=== PATIENT | female | born 1950 ===

== ENCOUNTER 2024-08-24 13:11 | Outpatient (REF) | payer MEDICARE, MEDICAID, SELFPAY ==
[2024-08-24 13:53] LABS: Appearance Urine Clear; Color Urine Yellow; Glucose Urine UA Negative (Negative); Leukocyte Esterase Urine Large (3+) (Negative); Nitrite Urine Negative (Negative); UMIC TRIGGER UACC YES; Urine Blood Moderate (2+) (Negative); Urine Ketones Negative (Negative); Urine Protein 30 (1+) mg/dL (Neg-Trace)
[2024-08-24 14:09] LABS: Bacteria Urine 2+ (None Seen); Hyaline Casts Urine 0-2 /LPF (0-2); Squamous Epithelial Cell Urine 0-2 /HPF (0-2); UACC Culture Trigger YES
--- OUTSIDE RECORDS SUMMARY | 2024-08-24 16:07 | XMS_ITS | Data Portability ---
Author Organization [facility], Home Service Address [address] [address] Assessment Encounter Date Assessment Date Assessment LastModified by Organization Details LastModified Time 05/27/2023 05/27/2023 Patient agreed and verbally consents to this audio and video Telehealth appt via a secure platform [email or web address] Not available 05/27/2023 13:48:48 08/24/2024 08/24/2024 Patient presente d to office today for their Medicare Annual Wellness Visit. Education was provided on healthy nutrition, including a diet rich in fruits and vegetables, minimizing simple carbohydrates, salt, and saturated fats. Encouraged regular cardiovascular exercise such as walking at least 30 minutes daily, 5 times per week. Emphasized preventive health measures and educated pt on fall prevention and community-based lifestyle interventions to help reduce health risks and promote healthy living. [email or web address] Not available 08/17/2024 06:56:18 Plan of Treatment Reminders Order Date Submit Date Provider Last Modified By Organization Details Last Modified Time Details Appointments MEDICARE ANNUAL WELLNESS 2024 10:00A M DR GOODRICH Not available Not available Not available MEDICARE ANNUAL WELLNESS 2025 10:30A M DR GOODRICH Not available Not available Not available Lab urinalysi s, dipstick 2024 025 Replaced by [facility], [address] [facility], [address], [place], [address], 08/24/2024 10:42:20 urinalysi s, reflex culture 2024 025 [facility] ([facility]), [address] [place] [address], [id number], 08/24/2024 10:34:43 urinalysi s, reflex culture 2024 025 [facility] ([facility]), [address] [place] [address], [id number], 08/24/2024 10:34:43 CBC w/ auto diff 2024 025 [facility] ([facility]), [address] [place] [address], [id number], 08/24/2024 10:34:43 CMP, serum or plasma 2024 025 [facility] ([facility]), [address] [place] [address], [id number], 08/24/2024 10:34:43 lipid panel, blood 2024 025 [facility]), [address] [place] [address], [id number], 08/24/2024 10:34:43 hemoglobi n, gastroint estinal, stool 2024 025 [facility] ([facility]), [address] [place] [address], [id number], 08/24/2024 10:34:43 CBC w/ auto diff 2023 024 [facility] [address] [place] [address], [id number], 09/29/2023 11:48:05 CMP, serum or plasma 2023 024 [email or web address] [facility] ([facility]), [address] [place] [address], [id number], 10/07/2023 09:09:17 CMP, serum or plasma 2023 024 [email or web address] 10 [facility] ([facility]), [address] [place], [address], 08/19/2023 08:32:24 CBC w/ auto diff 2023 024 [facility] ([facility]), [address] [place] [address], [id number], 08/19/2023 10:39:33 lipid panel, blood 2023 024 [email or web address] 10 [facility] ([facility]), [address] [place] [address], [id number], 08/19/2023 08:32:24 vitamin D, 25-hydrox y, total, serum 2023 024 [email or web address] [facility] ([facility]), [address] [place] [address], [id number], 08/12/2023 12:07:16 TSH + free T4, serum 2023 024 [facility] ([facility]), [address] [place] [address], [id number], 08/19/2023 10:39:34 HbA1c (hemoglob in A1c), blood 2021 PETE Not available 03/11/2022 03:03:19 CMP, serum or plasma 2021 PETE Not available 03/09/2022 13:05:51 CBC w/ auto diff 2021 PETE Not available 03/09/2022 13:05:51 lipid panel, blood 2021 PETE Not available 03/11/2022 03:04:45 vitamin D, 25-hydrox y, total, serum 2021 [email or web address] Not available 03/12/2022 08:51:51 vitamin B12, serum 2021 ATHENAFAX Not available 03/05/2022 11:12:32 TSH, serum or plasma 2021 ATHENAFAX Not available 03/05/2022 11:12:32 hepatitis C Ab, serum 2021 PETE Not available 03/09/2022 12:00:33 Referral None recorded. Procedures None recorded. Surgeries None recorded. Imaging bone density [address] [facility] [address] [facility], [address] [place] [address], [id number], 08/24/2024 14:37:11 MRI, lumbar spine, w/o contrast [address] [facility] [address] [facility], [address] [place] [address], [id number], 08/24/2024 14:37:10 CT, hip, w/o contrast [address] [facility] [address] [facility], [address] [place] [address], [id number], 08/24/2024 14:37:10 XR, hip + pelvis, unilatera l, 2 or 3 view 2023 024 [facility], [address] [place] [address], [address], 08/21/2023 09:49:00 MAMMO, screening , digital, bilateral 2021 022 [facility], [address] [place] [address], [id number], 03/19/2022 08:32:09 bone density 2021 [facility], [address] [place] [address], [address], 03/19/2022 08:32:09 Medication Orders Zithromax Z-Aaron 250 mg tablet 2023 024 [facility], [address] [place], [address], 09/29/2023 11:43:53 erythromy presley 5 mg/gram (0.5 %) eye ointment 2023 024 [email or web address] [facility], [address] [place], [address], 09/29/2023 11:32:34 Medrol (Aaron) 4 mg tablets in a dose pack [address] [facility], [address] [place], [address], 08/12/2023 11:26:39 doxycycli ne hyclate 100 mg tablet [address] [facility] [address], [address] [place], [address], 08/12/2023 11:26:18 meloxicam 15 mg tablet [address] [facility] [address], [address] [place], [address], 08/12/2023 11:26:25 Patient TargetsNo targets recorded. Patient Instructions Encounter Date Encounter Id Patient Instructions Last Modified By Organization Details Last Modified Time 03/05/2022 [id number] mammogram: about this test Not available 03/05/2022 11:13:56 08/24/2024 [id number] advance care planning: care instructions Not available 08/24/2024 10:33:10 Discussed and explained advance directives such as standard forms to the {{patient caregiv er patient and caregiver}}. Face to face discussion lasted for a duration of ___ minutes. [email or web address] Not available 08/17/2024 06:56:18 Reason for Referral None Reported. Results Created Date Observation Date Name Description Value Unit Range Abnormal Flag Note LastModifiedBy Organization Detail LastModifiedTime 08/25/1908/24/2024 urina lysis , dipst ick Leukocytes Small Not Available [facility] [address] [facility] [address], [place], [address], 08/24/2024 10:14:32 08/25/19 25 08/24/2024 urina lysis , dipst ick Nitrite negati ve Not Available [facility] [address], [place], [address], 08/24/2024 10:14:32 08/25/19 25 08/24/2024 urina lysis , dipst ick Urobilinogen .2 Not Available [address], [place], [address], 08/24/2024 10:14:32 08/25/19 25 08/24/2024 urina lysis , dipst ick pH 6.5 Not Available [address], [place], [address], 08/24/2024 10:14:32 08/25/19 25 08/24/2024 urina lysis , dipst ick Protein 30 Not Available [address], [place], [address], 08/24/2024 10:14:32 08/25/19 25 08/24/2024 urina lysis , dipst ick Blood Large Not Available [facility] [address], [place], [address], 08/24/2024 10:14:32 08/25/19 25 08/24/2024 urina lysis , dipst ick Specific [place] 1.010 Not Available [facility] [address], [place], [address], 08/24/2024 10:14:32 08/25/19 25 08/24/2024 urina lysis , dipst ick Ketone Negati ve Not Available [facility] [address] [facility] [address], [place], [address], 08/24/2024 10:14:32 08/25/19 25 08/24/2024 urina lysis , dipst ick Bilirubin Negati ve Not Available [facility] [address] [facility] [address], [place], [address], 08/24/2024 10:14:32 08/25/19 25 08/24/2024 urina lysis , dipst ick Glucose Negati ve Not Available [facility] [address] [facility] [address], [place], [address], 08/24/2024 10:14:32 08/25/19 25 08/24/2024 urina lysis , dipst ick Appearance Cloudy Not Available [facility] [address] [facility] [address], [place], [address], 08/24/2024 10:14:32 08/25/19 25 08/24/2024 urina lysis , dipst ick Color Pale Yellow Not Available [facility] [address] [facility] [address], [place], [address], 08/24/2024 10:14:32 03/20/20 22 03/20/2022 bone densi ty No observ ation record ed. [email or web address] [facility] [address] [place] [address], [address], 03/26/2022 14:27:05 03/31/20 22 03/29/2022 MAMMO , scree nila, digit al, bilat eral No observ ation record ed. [facility] [address] [place] [address], [address], 03/31/2022 20:50:54 08/21/19 24 08/19/2023 XR, hip + pelvi s, unila teral , 2 or 3 view No observ ation record ed. [email or web address] [facility] [address] [place] [address], [address], 08/22/2023 08:47:42 12/16/19 24 12/16/2023 CT, urogr am No observ ation record ed. [email or web address] [address] [facility] [address], [place], [address], 12/16/2023 12:25:53 Result Notes None recorded. Problems Name Problem SNOMED Code Status Onset Date Resolution Date Notes Provider Name and Address Organization Details Recorded Time Blood in urine 42029247 [facility] 08:40:27 Fibroma 021864270 Active 2017 pulmonary [place] [facility] 8 08:40:59 Bronchit is 52687372 Active 2017 [facility] 8 08:41:10 Polyp of colon 13759061 Active 2017 [facility] 8 08:41:33 Osteopen ia 582651883 Active 2021 Mohit Goodrich DO [address] [place] [address], [address], [facility] 2 11:09:50 Achilles tendinit is 80285648 Active 2021 Mohit Goodrich DO [address] [place] [address], [address], [facility] 2 11:15:33 Neutrope cyn 611745695 Active 2021 Mohit Goodrich DO [address] [place] [address], [address], [facility] 2 13:33:15 Infectio n of tick bite 969960151 Active 2022 SMITH WORTHY [address] [place], [address], [facility] 3 09:31:30 Acute sinusiti s 20231222 Active 2023 SMITH WORTHY [address] [place], [address], [facility] 4 13:48:41 Acute laryngit is 1347962 Active 2023 SMITH WORTHY [address] [place], [address], [facility] 4 13:52:25 Pain of left hip joint 68321153763 9100 Active 2023 Mohit Goodrich DO [address] [place] [address], [address], [facility] 4 12:00:52 Hordeolu m externum of lower eyelid of right eye 56568852375 9104 Active 2023 Mohit Goodrich DO [address] [place], [address], [facility] 4 12:01:53 Acute urinary tract infectio n 360590212 Active 2023 SMITH WORTHY [address] [place], [address], [facility] 4 09:50:46 Impacted cerumen in left ear 13402952810 36986 Active 2023 SMITH WORTHY [address] [place], [address], [facility] 4 11:43:04 Acute otitis media 6913366 Active 2023 SMITH WORTHY [address] [place], [address], [facility] 4 11:43:21 Dysuria 81828708 Active 2023 SMITH WORTHY [address] [place], [address], [facility] 4 09:33:54 Weakness of left lower limb Active 2024 Mohit Goodrich, DO [address] [place], [address], [facility] 5 10:28:06 Myelopat hy due to spinal stenosis of lumbar region 92067829896 9103 Active 2024 Mohit Goodrich, DO [address] [place], [address], [facility] 5 10:29:44 Instabil ity of left hip joint 368039719 Active 2024 Mohit Goodrich, DO [address] [place], [address], [facility] 5 10:34:04 Problem Notes None recorded. Procedures Surgical History Date Name Laterality Status Provider Name and Address Organization Details Recorded Time 4 Cerumen Removal completed SMITH WORTHY [address] [place], [address], [facility] 09/29/2023 11:48:07 Imaging Results Imaging Date Name Status LastModified by Organiz ation Details LastModified Time 03/20/2022 bone density completed [facility] [address] [place] [address], [address], 03/26/2022 14:27:05 03/29/2022 MAMMO, screening, digital, bilateral completed [facility] [address] [place] [address], [address], 03/31/2022 20:50:54 08/19/2023 XR, hip + pelvis, unilateral, 2 or 3 view completed [email or web address] [facility] [address] [place] [address], [address], 08/22/2023 08:47:42 12/16/2023 CT, urogram completed [facility] [address] [facility] [address], [place], [address], 12/16/2023 12:25:53 Procedure Notes None recorded. Medical Equipment None Reported. Allergies No known drug allergies Medications Name Sig Start Date Stop Date Status Note LastModified by Organization Details LastModified Time azithromyci n 250 mg tablet TAKE 2 TABLETS BY MOUTH ON DAY 1, AND THEN TAKE 1 TABLET BY MOUTH ONCE A DAY ON DAY 2 THROUGH DAY 5 active Not Available Not Available No t Available meloxicam 15 mg tablet Take 1 tablet every day by oral route for 30 days. 08/11 completed Not Available Not Available Not Available phenazopyri dine 200 mg tablet TAKE ONE TABLET BY MOUTH THREE TIMES A DAY NEEDED FOR 7 DAYS 03/05 completed Not Available Not Available Not Available ciprofloxac in 250 mg tablet TAKE 1 TABLET BY MOUTH EVERY 12 HOURS FOR 3 DAYS 09/28 completed Not Available Not Available Not Available sulfamethox azole 800 mg-trimetho prim 160 mg tablet Take 1 tablet every 12 hours by oral route for 10 days. active Not Available Not Available No t Available erythromyci n 5 mg/gram (0.5 %) eye ointment APPLY 1CM RIBBON INTO LOWER CONJUNCTI MELANI SAC(S) IN THE AFFECTED EYE(S) THREE TIMES DAILY FOR 10 DAYS 09/28 completed Not Available Not Available Not Available diclofenac sodium 75 mg tablet,navarro yed release TAKE ONE TABLET BY MOUTH TWICE A DAY 03/05 completed Not Available Not Available Not Available methylpredn isolone 4 mg tablets in a dose pack USE DIRECTED ON PACKAGE 08/11 completed Not Available Not Available Not Available doxycycline hyclate 100 mg tablet TAKE 1 TABLET BY MOUTH TWICE DAILY DIRECTED FOR SINUS INFECTION FOR 7 DAYS 08/11 completed Not Available Not Available Not Available diazepam 5 mg tablet TAKE ONE TO TWO TABLETS BY MOUTH 2 HOURS PRIOR TO MRI 03/05 completed Not Available Not Available Not Available neomycin 3.5 mg/g-polymy victoriano B 10,000 unit/g-dexa meth 0.1 % eye oint APPLY OINTMENT IN THE RIGHT EYE THREE TIMES A DAY FOR 1 WEEK, THEN ONCE DAILY FOR 1 WEEK active Not Available Not Available No t Available cyclobenzap rine 5 mg tablet TAKE ONE TABLET BY MOUTH THREE TIMES A DAY FOR 7 DAYS 10/25 /2022 completed Not Available Not Available Not Available calcium 09/28 completed Not Available Not Available Not Available Vitamin D active Not Available Not Meme ilable Not Available Vitals Date Recorded Body height Body mass index (BMI) Body weight Heart rate Oxygen saturation Oxygen saturation in Arterial blood by Pulse oximetry Systolic blood pressure Diastolic blood pressure Provider Name and Address Organization Details Last Updated DateTime 2 159.39 cm 31.8 kg/m2 52580.1 6 g 65 /min 100 % 100 % 142 mm[Hg] 68 mm[Hg] Mohit Goodrich, DO [address] [place], [address] 2 10:23:08 Date Recorded Body height Body mass index (BMI) Body weight Heart rate Oxygen saturation Oxygen saturation in Arterial blood by Pulse oximetry Systolic blood pressure Diastolic blood pressure Provider Name and Address Organization Details Last Updated DateTime 4 157.48 cm 32.2 kg/m2 28781.2 6 g 73 /min 100 % 100 % 130 mm[Hg] 80 mm[Hg] Marjan Smith [facility] 4 11:28:21 Date Recorded Body height Body mass index (BMI) Body weight Heart rate Oxygen saturation Oxygen saturation in Arterial blood by Pulse oximetry Systolic blood pressure Diastolic blood pressure Provider Name and Address Organization Details Last Updated DateTime 4 157.48 cm 31.6 kg/m2 98419.7 6 g 78 /min 100 % 100 % 118 mm[Hg] 70 mm[Hg] Christina Jaquez [facility] 4 11:33:59 Date Recorded Body height Body mass index (BMI) Body weight Heart rate Oxygen saturation Oxygen saturation in Arterial blood by Pulse oximetry Systolic blood pressure Diastolic blood pressure Provider Name and Address Organization Details Last Updated DateTime 5 157.48 cm 31.5 kg/m2 12742.8 9 g 82 /min 98 % 98 % 120 mm[Hg] 68 mm[Hg] Marjan Smith [facility] 5 09:58:11 Social History Question Answer Notes LastModified by Organizat ion Details LastModified Time Tobacco Smoking Status Former Smoker Not Available [facility] 03/14/2020 03:36:23 What Was The Date Of Your Most Recent Tobacco Screening? 08/24/2024 [email or web address] Information not available 08/24/2024 Do You Or Have You Ever Used Any Other Forms Of Tobacco Or Nicotine? No Information not available 03/05/2022 Sex: Unknown Functional Status None recorded. Mental Status None recorded. Family History Nothing Reported. Medical History No medical history recorded. Gynecological HistoryNo gynecological history recorded. Obstetrics History GPAL:G 0 P 0 0 0 0 Immunizations Vaccine Type Date Status Note Provider Nam e and Address Organization Details Recorded Time COVID-19, mRNA, LNP-S, PF, 30 mcg/0.3 mL dose 1 [facility] 01/16/2021 14:45:03 COVID-19, mRNA, LNP-S, PF, 30 mcg/0.3 mL dose 1 completed aNva avery [facility] 01/16/2021 14:45:12 COVID-19, mRNA, LNP-S, PF, 30 mcg/0.3 mL dose 2 completed Mohit Goodrich DO [address] [place] [address], [address], [facility] 08/17/2021 07:04:00 Influenza, split virus, quadrivalent, preservative 2 completed [facility] 02/25/2022 10:27:49 COVID-19, mRNA, LNP-S, PF, 30 mcg/0.3 mL dose 2 completed Mohit Goodrich DO [address] [place] [address], [address], [facility] 03/05/2022 10:22:05 zoster, unspecified formulation 3 completed Mohit Goodrich DO [address] [place] [address], [address], [facility] 01/03/2023 07:21:36 zoster recombinant 3 completed [facility] 03/24/2023 09:05:25 zoster recombinant 3 completed America avery [facility] 03/24/2023 11:47:31 influenza, unspecified formulation 4 completed Earnest avery [facility] 02/27/2024 15:51:09 COVID-19, mRNA, LNP-S, PF, 30 mcg/0.3 mL dose 4 completed Earnest avery [facility] 02/27/2024 15:53:03 pneumococcal, unspecified formulation 4 completed Mohit Goodrich [address], [address], [facility] 03/07/2024 08:46:42 Influenza, split virus, quadrivalent, preservative 9 completed Vonnie avery [facility] 03/23/2019 11:32:31 Past Encounters Encounter ID Performer Location Encounter Start Date Encounter Closed Date Diagnosis/Indication Diagnosis SNOMED-CT Code Diagnosis ICD10 Code Diagnosis Note [id number] Mohit Goodrich DO [facility] [address] [place] [address],[place] [address] 01/27/2018 13:46:04 01/27/2018 14:57:04 Adult health examination 842195179 Z00.00 will get fbw Active or passive immunization 763112570 Z23 Screening for cardiovascular system disease 688195646 Z13.6 Achilles tendinitis 1165 4001 M76.62 [id number] Mohit Goodrich DO [facility] [address] [facility], [place] [address] 10/19/2019 10:22:18 10/19/2019 11:40:49 Adult health examination 176202475 Z00.00 will get fbw Left Achil les tendinitis 8673262404 73069 M76.62 [id number] SMITH WORTHY [facility] [address] [facility] [address] 01/16/2021 14:37:26 01/16/2021 15:21:23 Lumbago with sciatica 975333760 M54.41 will start with XR, fu with MRI afterstart on diclofenac and cyclobenza aron [id number] Mohit Goodrich [facility] [address] [facility], [place] [address] 03/05/2022 10:14:40 03/05/2022 11:24:16 Active or passive immunization 838322313 Z23 patient due for flu shot, tdap, pneu Adult heal th examination 143671377 Z00.01 she is in need of fasting lab will need to follow dr ernst fitzgerald disc herniation if not getting attended to we will send her to dr meyers Impaired f asting glycemia 981121391 R73.01 Advance care planning 71 9601521 Z71.89 uipdated Osteopenia 264098614 M85 .80 Hepatitis C screening 41 6831117 Z11.59 Screening mammography 24 285003 Z12.31 Achilles tendinitis 1165 4001 M76.62 [id number] SMITH WORTHY [facility] [address] [facility],[place] [address] 05/27/2023 12:17:42 05/28/2023 08:43:27 Acute sinusitis 53916506 J01.10 will start on medrol and doxycyclin e Acute laryngitis 8443320 J04.0 warm salt water rinses if toleratedv ocal rest [id number] Mohit Goodrich DO [facility] [address] [facility],[place] [address] 08/12/2023 11:23:33 08/12/2023 12:25:04 Adult health examination 606364003 Z00.01 she is in need of fasting lab will need to follow dr dukes re disc herniation if not getting attended to we will send her to dr meyers Pain of le ft hip joint 8429763963 65385 M25.552 Hordeolum externum of lower eyelid of right eye 9330770455 00538 H00.012 [id number] SMITH WORTHY [facility] [address] [facility], [place] [address] 09/29/2023 11:23:45 09/29/2023 14:18:00 Depression screening 459228462 Z13.31 negative Impacted c erumen in left ear 0738040560 150095 H61.22 resolved, tolerate lavage well Acute otitis media 23382 03 H65.02 will set up with z-aaron Neutropenia 214546299 D7 0.8 will set up with CBC with diff to recheck [id number] Mohit Goodrich DO [facility] [address],[place] [address] 08/24/2024 09:42:55 08/24/2024 14:37:10 Adult health examination 292928236 Z00.00 she is in need of fasting lab will need to follow dr dukes re disc herniation if not getting attended to we will send her to dr pichardo and los Screening for cardiovascular system disease 203129541 Z13.6 Screening for malignant neoplasm of colon 922710734 Z12.11 Screening for osteoporosis 844363021 Z13.820 Screening mammography 24 242618 Z12.31 scheduled tomorrow Neutropenia 446196720 D7 0.8 resolved no issues Hordeolum externum of lower eyelid of right eye 9874209994 01410 H00.012 resolved Acute urin ronaldo tract infection 618598599 N39.0 Myelopathy due to spinal stenosis of lumbar region 6041112028 88062 M48.061 Instabilit y of left hip joint 887268851 M25.352 Health Concerns Section Related Observation LastModified by Organization Detai ls LastModified Time None Recorded Concern Status LastModified by Organization Details LastModified Time None Recorded Advance Directives Directive None Recorded Payers Encounter Date Sequence Insurance Name Policy Number Policy Garland Covered Member ID Garland Member ID Guarantor Name 03/05/2022 1 [place] PPO) [id number] Destiney Rodney [id number] Destiney Rodney 03/05/2022 2 [place] [employer] Destiney Rodney [id number] Destiney Rodney 05/27/2023 1 [place]MED[place] PPO) [id number] Destiney Rodney [id number] Destiney Rodney 05/27/2023 2 [place] [employer] Destiney Rodney [id number] Destiney Rodney 08/12/2023 1 [place]MED[place] PPO) [id number] Destiney Rodney [id number] Destiney Rodney 08/12/2023 2 [place] [employer] Destiney Rodney [id number] Destiney Rodney 09/29/2023 2 [place] Destiney Rodney [id number] Destiney Rodney 09/29/2023 1 [place] PPO) [id number] Destiney Rodney [id number] Destiney Rodney 08/24/2024 2 [place] [facility] Destiney Rodney [id number] Destiney Rodney 08/24/2024 1 [place]MED[place] PPO) [id number] Destiney Rodney [id number] Destiney Rodney Notes Date Note Type Note Provider Name a ct Address Organization Details Recorded Time 2 text/html Annual WellnessReported bypatient.Diet and Nutrition:healthy diet Fracture Risk:no history of fractures; no recent explained fracture; no sudden unexplained fractures; no previous musculoskeletal injuries Physical Activity:exercises on a regular basis; recent increase in physical activity; good physical condition Additional Lifestyle Factors:no tobacco use; no alcohol intake; stopped drinking alcohol Depression Risk:never feels sad, empty, or tearful; no loss of interest in activities; no significant changes in weight; no sleep disturbances or insomnia; no agitation; no loss of energy; no feelings of worthlessness or guilt; no thoughts of suicide; no history of depression; no history of mood disorders Hearing:no loss of hearing Vision:no vision problems still having trouble with her backhad a revcent MRI done through dr vallejo pendingnow having ongoing discomfort in left ankle Mohit Goodrich, DO [address], [place], [address], [facility] 03/05/2022 11:16:28 4 text/html c/o sore throat, sinus pain The patient is participating in this appointment via telemedicine communication with a phone call/video calling service (Agorique)The patient consents to use of these platforms in place of an in-person appointment due to either sick symptoms the patient is presenting with or current office closure due to COVID exposure in order to keep our office staff and patients safe The patient presents to the office today with concerns of sick symptoms including post-nasal drip, sore throat, sinus pain and pressure, denies fever or chillsno sob also developing laryngitis today, her voice was in and out on the phone The symptoms started originally about 10 days ago, no known sick contactsThe patient denies any known exposureThe patient symptoms mainly involves the sinus pressure and sore throat Pertinent comorbidities include age otherwise no other symptoms The patient symptoms are alleviated by rest, napping but picks up again when she is doing chores around the housesudafed helps a little bitThe patient symptoms are exacerbated by bending forward, excess activity The patient has tested for COVID-19 and the results was negative SMITH WORTHY [address] [place], [address], [facility] 05/27/2023 13:52:45 4 text/html Annual WellnessReported bypatient.Diet and Nutrition:healthy diet Fracture Risk:no history of fractures; no recent explained fracture; no sudden unexplained fractures; no previous musculoskeletal injuries Physical Activity:exercises on a regular basis; recent increase in physical activity; good physical condition Additional Lifestyle Factors:no tobacco use; no alcohol intake; stopped drinking alcohol Depression Risk:never feels sad, empty, or tearful; no loss of interest in activities; no significant changes in weight; no sleep disturbances or insomnia; no agitation; no loss of energy; no feelings of worthlessness or guilt; no thoughts of suicide; no history of depression; no history of mood disorders Hearing:no loss of hearing Vision:no vision problems here for annual doing ok overallhad covid and rsv infectionsalso had a fall and injured her right lower pereira still having trouble with her back Mohit Goodrich DO [address] [place], [address], [facility] 08/12/2023 12:07:33 4 text/html c/o L ear pain patient presents to the office today with ear pain, left sidestarted a few days ago, feels like a pressure and an ache, constant, some very mild hearing losscausing her some vertigo with positional changes, like bending to standing, moving her head to quicklyevaluation reveals L ear canal blocked with earwaxagreed to lavage today in officeperformed by RTimpaction completely removedpt noted immediate relief in her symptoms she does have an ear infection a recheck with wax removedwill have her start on z aaron otherwise no other concerns SMITH WORTHY [address] [place], [address], [facility] 09/29/2023 11:50:46 5 text/html Medicare Annual Wellness VisitReported bypatient.Diet and Nutrition:healthy diet Fracture Risk:no history of fractures; no recent explained fracture; no sudden unexplained fractures; no previous musculoskeletal injuries Physical Activity:exercises on a regular basis; recent increase in physical activity; good physical condition Depression Risk:never feels sad, empty, or tearful; no loss of interest in activities; no significant changes in weight; no sleep disturbances or insomnia; no agitation; no loss of energy; no feelings of worthlessness or guilt; no thoughts of suicide; no history of depression; no history of mood disorders Orientation:no disorientation to time; no disorientation to date; no disorientation to place Concentration and Memory:no decreased concentrating ability; no memory lapses or loss; does not forget words Speech/Motor difficulties:no speech difficulties; no difficulty expressing formulated concepts; no difficulty with fine manipulative tasks; no difficulty writing/copying; no slowed reaction time; does not knock things over when trying to pick them up Hearing:no loss of hearing; having difficulty walking Vision:no vision problems Activities of Daily Living:able to bathe with limited or no assistance; able to contol urination and bowels; able to dress with limited or no assistance; able to feed self with limited or no assistance; able to get out of chair or bed with limited or no assistance; able to groom with limited or no assistance; able to toilet with limited or no assistance Instrumental Activities of Daily Living:able to do house work with limited or no assistance; able to grocery shop with limited or no assistance; able to manage medications with limited or no assistance; able to manage money with limited or no assistance; able to prepare meals with limited or no assistance; able to use the phone with limited or no assistance Falls Risk Assessment:no frequent falls while walking; no fall in the past year; no fall since last visit; no dizziness/vertigo Home Safety:no unsafe arlene hazzards; no unsafe stairs; no unsafe gas appliances; working smoke/CO detectors; wears protective head gear for biking/high velocity; use of seatbelts; practicing 'safer sex'; no vision or hearing loss while driving; no fire arms; has hand bars in the bathroom/shower; good lighting in the home here fo mwvrelates having pain and discomfort to left hip and lower back arearelates cannot walk any length now legs feel weak and almost give out Mohit Goodrich, DO [address], [place], [address], [facility] 08/24/2024 10:43:52 OBGyn Episode No OBEpisode recorded.
--- OUTSIDE RECORDS SUMMARY | 2024-08-24 16:07 | XMS_ITS | Continuity of Care Document ---
Author Organization [facility], [facility] Address [address] [place] [address] Assessment Encounter Date Assessment Date Assessment LastModified by Organization Details LastModified Time 08/24/2024 08/24/2024 Patient presente d to office [...] available Lab urinalysi s, dipstick 2024 025 [facility], [address] [facility], [address], [place], [address], 08/24/2024 10:42:20 urinalysi s, reflex culture 2024 025 [facility] (Outpatient), [address] [place] [address], [id number], 08/24/2024 10:34:43 urinalysi s, reflex culture 2024 025 [facility] (Outpatient), [address] [place] [address], [id number], 08/24/2024 10:34:43 CBC w/ auto diff 2024 [facility] (Outpatient), [address] [place], [address], 08/24/2024 10:34:43 CMP, serum or plasma 2024 [facility] (Outpatient), [address] [place], [address], 08/24/2024 10:34:43 lipid panel, blood 2024 [facility] (Outpatient), [address] [place] [address], [id number], 08/24/2024 10:34:43 hemoglobi n, gastroint estinal, stool 2024 [facility] (Outpatient), [address] [place], [address], 08/24/2024 10:34:43 Referral None recorded. Procedures None recorded. Surgeries None recorded. Imaging bone density [address] [facility], [address] [place] [address], [id number], 08/24/2024 14:37:11 MRI, lumbar spine, w/o contrast [address] [facility], [address] [place] [address], [id number], 08/24/2024 14:37:10 CT, hip, w/o contrast [address] [facility], [address] [place] [address], [id number], 08/24/2024 14:37:10 Medication Orders None recorded. Patient TargetsNo targets recorded. Patient Instructions Encounter Date Encounter Id Patient Instructions Last Modified By Organization Details Last Modified Time 08/24/2024 [id number] advance care planning: care instructions Not available [...] , dipst ick Leukocytes Small Not Available [facility] [address] [place] [address] D, [place], [address], 08/24/2024 10:14:32 08/25/19 25 08/24/2024 urina lysis , dipst ick Nitrite negati ve Not Available [facility] [address] [place] [address] D, [place], [address], 08/24/2024 10:14:32 08/25/19 25 08/24/2024 urina lysis , dipst ick Urobilinogen .2 Not Available [facility] [address], [place], [address], 08/24/2024 10:14:32 08/25/19 25 08/24/2024 urina lysis , dipst ick pH 6.5 Not Available [facility] [address], [place], [address], 08/24/2024 10:14:32 08/25/19 25 08/24/2024 urina lysis , dipst ick Protein 30 Not Available [facility] [address], [place], [address], 08/24/2024 10:14:32 08/25/19 25 08/24/2024 urina lysis , dipst ick Blood Large Not Available [facility] [address] [facility] [address], [place], [address], 08/24/2024 10:14:32 08/25/19 25 08/24/2024 urina lysis , dipst ick Specific [place] 1.010 Not Available [facility] [address], [place], [address], 08/24/2024 10:14:32 08/25/19 25 08/24/2024 urina lysis , dipst ick Ketone Negati ve Not Available [facility] [address] [address] [facility] [address], [place], [address], 08/24/2024 10:14:32 08/25/19 25 08/24/2024 urina lysis , dipst ick Bilirubin Negati ve Not Available [facility] [address], [place], [address], 08/24/2024 10:14:32 08/25/19 25 08/24/2024 urina lysis , dipst ick Glucose Negati ve Not Available [facility] [address], [place], [address], 08/24/2024 10:14:32 08/25/19 25 08/24/2024 urina lysis , dipst ick Appearance Cloudy Not Available [facility] [address] [facility] [address], [place], [address], 08/24/2024 10:14:32 08/25/19 25 08/24/2024 urina lysis , dipst ick Color Pale Yellow Not Available [facility] [address] [facility] [address], [place], [address], 08/24/2024 10:14:32 Result Notes None recorded. 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 Jaedjenae Pena [facility] 8 08:40:59 Bronchit is 93542570 Active 2017 [facility] 08:41:10 Polyp of colon 17741888 Active 2017 Jadejenae Pena [facility] 8 08:41:33 Osteopen ia 515411129 Active 2021 Mohit Goodrich DO [address] [place], [address], [facility] 2 11:09:50 Achilles tendinit is 90842717 Active 2021 Mohit Goodrich DO [address] [place], [address], [facility] 2 11:15:33 Neutrope cyn 754796615 Active 2021 Mohit Goodrich DO [address] [place], [address], [facility] 2 13:33:15 Infectio n of tick bite 846501828 Active 2022 SMITH WORTHY [address] [place], [address], [facility] 3 09:31:30 Acute sinusiti s 94377535 Active 2023 SMITH WORTHY [address] [place], [address], [facility] 4 13:48:41 Acute laryngit is 0811766 Active 2023 SMITH WORTHY [address] [place], [address], [facility] 4 13:52:25 Pain of left hip joint 66946019033 9100 Active 2023 Mohit Goodrich, [address] [place] [address], [address], [facility] 4 12:00:52 Hordeolu m externum of lower eyelid of right eye 86467638989 9104 Active 2023 Mohit Goodrich, DO [address] [place] [address], [address], [facility] 4 12:01:53 Acute urinary tract infectio n 252593289 Active 2023 SMITH WORTHY [address] [place] [address], [address], [facility] 4 09:50:46 Impacted cerumen in left ear 30925053778 68616 Active 2023 SMITH WORTHY [address] [place] [address], [address], [facility] 4 11:43:04 Acute otitis media 6101038 Active 2023 SMITH WORTHY [address] [place] [address], [address], [facility] 4 11:43:21 Dysuria 36568455 Active 2023 SMITH WORTHY [address] [place] [address], [address], [facility] 4 09:33:54 Weakness of left lower limb Active 2024 Mohit Goodrich, DO [address] [place] [address], [address], [facility] 5 10:28:06 Myelopat hy due to spinal stenosis of lumbar region 71161720049 9103 Active 2024 Mohit Goodrich DO [address] [place] [address], [address], [facility] 5 10:29:44 Instabil ity of left hip joint 365471312 Active 2024 Mohit DawnaVirgen Goodrich, [address] [place], [address], [facility] 5 10:34:04 Problem Notes None recorded. Procedures Surgical History Date Name Laterality Status Provider Name and Address Organization Details Recorded Time Cerumen Removal completed SMITH WORTHY [address] [place], [address], [facility] 09/29/2023 11:48:07 Imaging Results None recorded. Procedure Notes None recorded. Medical Equipment None [...] THREE TIMES A DAY FOR 7 DAYS 03/05 completed Not Available [...] Updated DateTime 5 157.48 cm 31.5 kg/m2 64447.8 9 g 82 /min 98 % 98 % 120 mm[Hg] 68 mm[Hg] Marjna Smith [facility] 5 09:58:11 Social History Question Answer Notes LastModified by Organizat ion Details LastModified Time Tobacco Smoking Status Former Smoker Not Available [facility] 03:36:23 What Was The Date Of Your Most Recent Tobacco Screening? 08/24/2024 [email or web address] Information not available 08/24/2024 Do You Or [...] 30 mcg/0.3 mL dose 1 completed Nava avery [facility] 01/16/2021 14:45:03 COVID-19, mRNA, LNP-S, PF, 30 mcg/0.3 mL dose 1 [facility] 01/16/2021 14:45:12 COVID-19, mRNA, LNP-S, PF, 30 mcg/0.3 mL dose 2 completed Mohit Goodrich, [address], [address], [facility] 08/17/2021 07:04:00 Influenza, split virus, quadrivalent, preservative 2 [facility] 10:27:49 COVID-19, mRNA, LNP-S, PF, 30 mcg/0.3 mL dose 2 completed Mohit Goodrich, [address] [place] [address], [address], [facility] 03/05/2022 10:22:05 zoster, unspecified formulation 3 completed Mohit Goodrich, [address] [place] [address], [address], [facility] 01/03/2023 07:21:36 zoster recombinant 3 completed [facility] 03/24/2023 09:05:25 zoster recombinant 3 completed America Rodrigues [facility] 03/24/2023 11:47:31 influenza, unspecified formulation 4 completed [facility] 02/27/2024 15:51:09 COVID-19, mRNA, LNP-S, PF, 30 mcg/0.3 mL dose 4 completed [facility] 02/27/2024 15:53:03 pneumococcal, unspecified formulation 4 completed Mohit Goodrich [address], [address], [facility] 03/07/2024 08:46:42 Influenza, split virus, quadrivalent, preservative 9 completed [facility] 03/23/2019 11:32:31 Past Encounters Encounter ID Performer Location Encounter Start Date Encounter Closed Date Diagnosis/Indication Diagnosis SNOMED-CT Code Diagnosis ICD10 Code Diagnosis Note [id number] DO [facility] [address],[place] [address] 08/24/2024 09:42:55 08/24/2024 14:37:10 Adult health examination 780357943 Z00.00 she is in need of fasting lab will need to follow dr ernst fitzgerald disc herniation if not getting attended to we will send her to dr pichardo and los Screening for cardiovascular system disease 543814051 Z13.6 Screening for malignant neoplasm of colon 394431739 Z12.11 Screening for osteoporosis 056985428 Z13.820 Screening mammography 24 765547 Z12.31 scheduled tomorrow Neutropenia 463011246 D7 0.8 resolved no issues Hordeolum externum of lower eyelid of right eye 8072293429 04010 H00.012 resolved Acute urin ronaldo tract infection 060373842 N39.0 Myelopathy due to spinal stenosis of lumbar region 8471573554 52421 M48.061 Instabilit y of left hip joint 410471849 M25.352 Health Concerns Section Related Observation LastModified by Organization Detai ls LastModified Time None Recorded Concern Status LastModified by Organization Details LastModified Time None Recorded Payers Encounter Date Sequence Insurance Name Policy Number Policy Garland Covered Member ID Garland Member ID Guarantor Name 08/24/2024 2 [place] [facility] Destiney Rodney [id number] Destiney Rodney 08/24/2024 1 [place] PPO) [id number] Destiney Rodney [id number] Destiney Rodney Notes Date Note Type Note Provider Name a nd Address Organization Details Recorded Time 5 text/html Medicare Annual Wellness VisitReported bypatient.Diet [...] almost give out Mohit Goodrich, DO [address] [place], [address], [facility] 08/24/2024 10:43:52 OBGyn Episode No OBEpisode recorded.
== END 2024-08-24 13:12 | disposition home or self-care (01) ==
LOC: HO.MANLNP 13:11
PROVIDERS: Visit Provider Internal Medicine
DX: N39.0 Urinary tract infection, site not specified (principal); B96.20 Unspecified Escherichia coli [E. coli] as the cause of diseases classified elsewhere; B95.1 Streptococcus, group B, as the cause of diseases classified elsewhere
CPT/HCPCS: 81001; 87086; 87088; 87147; 87186